=== PATIENT | female | born 1955 | race Caucasian/White ===

== ENCOUNTER 2017-01-26 12:54 | Emergency (ER) | payer OTHER ==
--- NOTE | 2017-01-26 13:32 | Emergency Department Report ---
Chief Complaint: Headache Stated Complaint: PAIN AND HEAD AND EYES,NUMBNESS Time Seen by Provider: 01/26/17 13:30 - HPI History of Present Illness: PT c/o headache x 1 year for one month, she has had episodes of headache with blurred vision and dizziness - ROS Review of Systems: +blurred vision + dizziness + headache - Exam Physical Exam: pt is alert and appropriate non toxic MSE screening note: Focused history and physical exam performed. Due to findings the following was ordered: ekg, ct, labs ED Disposition for MSE Condition: Stable
[2017-01-26 13:58] LABS: Basophils % (Auto) 0.7 % (0.0-1.8); Hematocrit 40.7 % (30.3-42.9); Hemoglobin 13.5 gm/dl (10.1-14.3); Mean Corpuscular HGB Conc 33 % (30-34); Mean Corpuscular Volume 78 fl (79-97); Platelet Count 179 K/mm3 (140-440); Red Blood Count 5.23 M/mm3 (3.65-5.03); Red Cell Distribution Width 15.2 % (13.2-15.2)
[2017-01-26 14:01] LABS: Mean Corpuscular Hemoglobin 26 pg (28-32)
--- NOTE | 2017-01-26 14:05 | Cat Scan Report ---
CT HEAD WITHOUT CONTRAST INDICATION: Headache, blurred vision, dizziness. COMPARISON: None similar at this institution. FINDINGS: Noncontrast head CT demonstrates normal ventricles. Age appropriate sulci though mildly enlarged bifrontal and along the vertex. No acute or recent infarct, hemorrhage, mass effect or midline shift. No abnormal extra-axial fluid collections. Posterior fossa structures and basilar cisterns appear within normal limits. Symmetric eye globes. Partially empty sella. Subtle density within the right sphenoid sinus. Clear remainder paranasal sinuses and mastoid air cells. Mild nasal septal deviation. Atherosclerotic internal carotid artery calcifications. Right external auditory canal debris may be directly visualized. Intact calvarium. Normal overlying scalp soft tissues. Few radiopaque dental material incidentally noted. CONCLUSION: No acute intracranial CT abnormality with various incidental findings, as described. Thank you for the opportunity to participate in this patient's care.
[2017-01-26 14:13] LABS: Alanine Aminotransferase 26 units/L (7-56); Albumin 4.1 g/dL (3.9-5); Albumin/Globulin Ratio 1.3 %; Alkaline Phosphatase 57 units/L (35-129); Anion Gap 21 mmol/L; BUN/Creatinine Ratio 27.14; Blood Urea Nitrogen 19 mg/dL (7-17); Calcium 9.1 mg/dL (8.4-10.2); Carbon Dioxide 23 mmol/L (22-30); Chloride 98.9 mmol/L (98-107); Glucose 195 mg/dL (65-100); Potassium 4.1 mmol/L (3.6-5.0); Sodium 139 mmol/L (137-145); Total Protein 7.2 g/dL (6.3-8.2)
--- NOTE | 2017-01-26 21:54 | Emergency Department Report ---
HPI - General Chief Complaint: Neuro Symptoms/Deficit Time Seen by Provider: 01/26/17 13:30 - HPI HPI: Chief complaint headache This is a 61-year-old white female who presented to the ED with right-sided headache for 1 year. She states her symptoms happened intermittently and occurred in the right-sided of her head sharp pain, 10 out of 10, with numbness to the right side. She usually rests and her symptoms will go away. She denied any nausea vomiting shortness of breath chest pain, weakness, difficulty ambulating or dizziness. She has not spoken with her PCP regarding these symptoms. The symptoms occurred again yesterday so she came today to the ED to make sure she didn't have a stroke. ED Past Medical Hx - Past Medical History Previous Medical History?: Yes Hx Hypertension: Yes Hx Diabetes: Yes Hx Arthritis: Yes Additional medical history: Hypothyroid - Social History Smoking Status: Never Smoker Substance Use Type: None - Medications Home Medications: Home Medications Medication Instructions Recorded Confirmed Last Taken Type Butalb/Acetaminophen/Caffeine 1 cap PO Q8HR PRN #30 cap 01/26/17 Unknown Rx [Fioricet 50-300-40 mg CAP] Furosemide [Lasix TAB] 20 mg PO QDAY #30 tablet 01/26/17 Unknown Rx ED Review of Systems ROS: Stated complaint: PAIN AND HEAD AND EYES,NUMBNESS Other details as noted in HPI Comment: All other systems reviewed and negative Constitutional: no symptoms reported Neurological: headache, paresthesias Physical Exam - Physical Exam Vital Signs: Vital Signs 01/26/17 13:22 Temperature 98.0 F Pulse Rate 69 Respiratory 18 Rate Blood Pressure 149/61 O2 Sat by Pulse 99 Oximetry Physical Exam: Vitals reviewed Gen. alert and oriented 3 in no distress Head atraumatic normocephalic Eyes PERR LA EOMI Chest regular rate and rhythm normal S1-S2 lungs clear bilaterally Abdomen soft nondistended Back no point tenderness paravertebral tenderness Neuro no focal deficit. Psych normal mood. ED Course Vital Signs 01/26/17 13:22 Temperature 98.0 F Pulse Rate 69 Respiratory 18 Rate Blood Pressure 149/61 O2 Sat by Pulse 99 Oximetry - Reevaluation(s) Reevaluation #1: 01/26/17 21:52 Observed in ED no developing weakness, no reoccurrence of symptoms feels much better will DC home with follow-up with PCP. ED Medical Decision Making - Lab Data Result diagrams: 01/26/17 13:35 01/26/17 13:35 Critical care attestation.: If time is entered above; I have spent that time in minutes in the direct care of this critically ill patient, excluding procedure time. ED Disposition Clinical Impression: Migraine aura, persistent, Peripheral edema Disposition: - TO HOME OR SELFCARE Is pt being admited?: No Does the pt Need Aspirin: No Condition: Stable Instructions: Migraine Headache (ED), Leg Edema (ED) Prescriptions: Butalb/Acetaminophen/Caffeine [Fioricet 50-300-40 mg CAP] 1 cap PO Q8HR PRN #30 cap PRN Reason: Headache Furosemide [Lasix TAB] 20 mg PO QDAY #30 tablet Referrals: PRIMARY CARE, [Primary Care Provider] - 3-5 Days
[2017-01-26 22:18] VITALS: BP 164/80
== END 2017-01-26 22:16 | disposition home or self-care (01) ==
LOC: ED 12:54
DX: G43.109 Migraine with aura, not intractable, without status migrainosus (principal); R60.9 Edema, unspecified; I10 Essential (primary) hypertension; E11.9 Type 2 diabetes mellitus without complications
CPT/HCPCS: 36415; 70450; 80053; 82962; 84484; 85025; 93005; 93010; 99284

== ENCOUNTER 2017-11-06 09:27 | Outpatient (CLI) | payer OTHER ==
[2017-11-06 09:55] LABS: Blood Urea Nitrogen 17 mg/dL (7-17)
--- NOTE | 2017-11-07 09:33 | Magnetic Resonance Report ---
MRI scan of brain: History: Dizziness and giddiness. Technique: Multisequence images were obtained without and with contrast injection. Findings: No evidence of restricted diffusion. No abnormal enhancement. Ventricles are normal in size and midline in location. No evidence of acute ischemia or hemorrhage. Normal brainstem and cerebellum. No extra-axial fluid collection. There is cystic area noted at the pituitary fossa suggestive of an empty sella and less likely pituitary cyst. Cystic areas are identified at the left maxillary sinus suggestive of a tension cyst or polyps in Impression: Probable empty sella or pituitary cyst. MRI scan of the pituitary gland may be advised if clinically indicated. Sinus disease.
== END 2017-11-06 09:28 | disposition home or self-care (01) ==
LOC: MRI 09:27
PROVIDERS: ATTEND Internal Medicine
DX: J32.0 Chronic maxillary sinusitis (principal); G43.009 Migraine without aura, not intractable, without status migrainosus
CPT/HCPCS: 36415; 70553; 82565; 84520; A9577